=== PATIENT | female | born 1955 | race American Indian/Alaskan Native ===

== ENCOUNTER 2022-05-01 20:09 | Emergency (ER) | payer OTHER ==
[2022-05-01 22:47] LABS: Basophils % (Auto) 0.3 % (0.0-1.8); Eosinophils % (Auto) 0.1 % (0.0-4.3); Hematocrit 38.8 % (30.3-42.9); Hemoglobin 13.4 gm/dl (10.1-14.3); Lymphocytes # (Auto) 1.3 K/mm3 (1.2-5.4); Lymphocytes % (Auto) 8.9 % (13.4-35.0); Mean Corpuscular HGB Conc 34 % (30-34); Mean Corpuscular Volume 89 fl (79-97); Monocytes # (Auto) 1.7 K/mm3 (0.0-0.8); Monocytes % (Auto) 11.6 % (0.0-7.3); Platelet Count 214 K/mm3 (140-440); Red Blood Count 4.37 M/mm3 (3.65-5.03); Red Cell Distribution Width 13.2 % (13.2-15.2)
[2022-05-01 22:48] LABS: Bacteria,Urine 2+ /HPF (Negative); Mucus,Urine 3+ /HPF
[2022-05-01 22:49] LABS: Color,Urine Yellow (Yellow)
[2022-05-01 22:50] LABS: Bilirubin,Urine Negative (Negative)
[2022-05-01 22:51] LABS: Blood,Urine Trace (Negative); Urobilinogen,Urine < 2.0 mg/dL (<2.0)
[2022-05-01 23:02] LABS: Alanine Aminotransferase 17 units/L (7-56); Albumin 3.9 g/dL (3.9-5); BUN/Creatinine Ratio 21; Blood Urea Nitrogen 19 mg/dL (7-17); Calcium 9.5 mg/dL (8.4-10.2); Hemolysis Index 1
[2022-05-01] MEDS ORDERED: SODIUM CHLORIDE 0.9% 1000 ML 1,000 ML IV ONE (23:55)
[2022-05-01] MEDS ORDERED: ONDANSETRON 4 MG/2 ML INJ IV ONE (23:55)
[2022-05-01] MEDS ORDERED: MORPHINE 4 MG/1 ML INJ IV ONE (23:55)
--- NOTE | 2022-05-02 01:00 | Cat Scan Report ---
CT ABDOMEN AND PELVIS WITH CONTRAST INDICATION / CLINICAL INFORMATION: LOWER ABDOMINAL PAIN. TECHNIQUE: Axial CT images were obtained through the abdomen and pelvis after 100 cc Omnipaque [address] scans at this location are performed using CT dose reduction for ALARA by means of automated exposure control. COMPARISON: None available. FINDINGS: LOWER CHEST: No significant abnormality of the imaged chest. LIVER: No focal lesion. No acute findings. GALLBLADDER / BILE DUCTS: No significant abnormality. Biliary ducts grossly unremarkable. SPLEEN: No significant abnormality. PANCREAS: No focal lesion of the pancreas. ADRENALS: No significant abnormality. KIDNEYS/URETERS: No stones or hydronephrosis. No solid renal lesion. STOMACH / DUODENUM / SMALL BOWEL: The stomach, duodenum, and small bowel demonstrate no significant a bnormality. No specific abnormality of the mesentery demonstrated. COLON: Multiple diverticula are demonstrated within the lower descending and sigmoid colon. Fat stran ding along the superior margin of the sigmoid colon is present with additional inflammatory stranding tracking along mesenteric vein/veins within the mesocolon of the left abdomen. These veins are not w ell-opacified. Additional wall thickening noted in the region of inflammatory change. APPENDIX: No significant abnormality. PERITONEUM: No free air or free fluid are present within the abdomen or pelvis. LYMPH NODES: Borderline to minimally enlarged lymph nodes within the sigmoid mesocolon are present. AORTA / ARTERIES: No significant abnormality. IVC / VEINS: No significant abnormality. URINARY BLADDER: No significant abnormality. REPRODUCTIVE ORGANS: No significant abnormality. SKELETAL SYSTEM: No significant abnormality. ADDITIONAL ABDOMINAL/PELVIC FINDINGS: None. IMPRESSION: 1. Findings compatible with acute diverticulitis. Additional inflammatory stranding along the venous drainage within the mesocolon/mesentery is present with possible thrombophlebitis of the adjacent holly ous structures. No evidence of perforation or abscess formation. Signer Name: Rg Juarez II, MD Signed: 05/02/2022 12:56 AM Workstation Name: [id number]
[2022-05-02] MEDS ORDERED: levoFLOXacin 500 MG TAB PO ONE (01:43)
[2022-05-02] MEDS ORDERED: metroNIDAZOLE 500 MG TAB PO ONE (01:43)
[2022-05-02] MEDS ORDERED: ONDANSETRON 4 MG/2 ML INJ IV ONE (01:58)
[2022-05-02] MEDS ORDERED: KETOROLAC 30 MG/1 ML INJ IV ONE (01:58)
[2022-05-02] MEDS ORDERED: HYDROmorphone 1 MG/1 ML INJ IV ONE (01:58)
--- NOTE | 2022-05-02 02:25 | Emergency Department Report ---
ED Abdominal Pain HPI - General Chief Complaint: Abdominal Pain Stated Complaint: PAIN LOWER BACK AND STOMACH Source: patient Mode of arrival: Ambulatory Limitations: No Limitations - History of Present Illness Initial Comments: Patient is a 67-year-old -[place] female with a history of hypertension and ikk-aqxoucf-gdkzesypk diabetes who presents to the ED with complaint of acute onset persistent diffuse lower abdominal pain with nausea for the last 1 week. Patient states that the symptoms have worsened especially in the last 3 days such that she has not been able to sleep because of worsening diffuse lower abdominal pain. Patient denies diarrhea, hematochezia, vomiting, chest pain, shortness of breath, fever, chills, cough, sore throat, dysuria, urinary frequ ency and urgency, vaginal bleeding, vaginal discharge, low back pain, lightheadedness or sore throat. MD Complaint: abdominal pain (Diffuse lower abdominal pain), other (nausea and vomiting) -: Gradual, week(s) (1) Location: LLQ, RLQ, suprapubic Radiation: LLQ, RLQ, suprapubic Migration to: no migration Severity: severe Severity scale (0 -10): 9 Quality: aching, sharp Consistency: constant Improves With: nothing Worsens With: movement Context: other (unknown) Associated Symptoms: denies other symptoms, nausea, anorexia. denies: vomiting, diarrhea, fever, chills, constipation, dysuria, hematemesis, hematochezia, melena, hematuria, syncope, other - Related Data Previous Rx's Medication Instructions Recorded Last Taken Type Ciprofloxacin HCl 500 mg PO Q12H #20 tab 05/02/22 Unknown Rx Dicyclomine [Bentyl] 20 mg PO Q6H PRN #30 tablet 05/02/22 Unknown Rx Ondansetron [Zofran Odt] 4 mg PO Q6HR PRN #20 tab.rapdis 05/02/22 Unknown Rx metroNIDAZOLE [Flagyl] 500 mg PO Q8HR #30 tablet 05/02/22 Unknown Rx traMADoL [Ultram] 50 mg PO Q6HR PRN #12 tablet 05/02/22 Unknown Rx Allergies Allergy/AdvReac Type Severity Reaction Status Date / Time No Known Allergies Allergy Unverified 05/01/22 21:48 ED Review of Systems ROS: Stated complaint: PAIN LOWER BACK AND STOMACH Other details as noted in HPI Constitutional: denies: chills, fever Eyes: denies: eye pain, eye discharge, vision change ENT: denies: ear pain, throat pain Respiratory: denies: cough, shortness of breath, wheezing Cardiovascular: denies: chest pain, palpitations Endocrine: no symptoms reported Gastrointestinal: abdominal pain (diffuse lower abdomen), nausea. denies: diarrhea Genitourinary: denies: urgency, dysuria, discharge Musculoskeletal: denies: back pain, joint swelling, arthralgia Skin: denies: rash, lesions Neurological: denies: headache, weakness, paresthesias Psychiatric: denies: anxiety, depression Hematological/Lymphatic: denies: easy bleeding, easy bruising ED Past Medical Hx - Past Medical History Previous Medical History?: Yes Hx Hypertension: Yes Hx Diabetes: Yes (type 2) - Surgical History Past Surgical History?: Yes Additional Surgical History: - Medications Home Medications: Home Medications Medication Instructions Recorded Confirmed Last Taken Type Ciprofloxacin HCl 500 mg PO Q12H #20 tab 05/02/22 Unknown Rx Dicyclomine [Bentyl] 20 mg PO Q6H PRN #30 tablet 05/02/22 Unknown Rx Ondansetron [Zofran Odt] 4 mg PO Q6HR PRN #20 tab.rapdis 05/02/22 Unknown Rx metroNIDAZOLE [Flagyl] 500 mg PO Q8HR #30 tablet 05/02/22 Unknown Rx traMADoL [Ultram] 50 mg PO Q6HR PRN #12 tablet 05/02/22 Unknown Rx ED Physical Exam - General Limitations: No Limitations General appearance: alert, in no apparent distress - Head Head exam: Present: atraumatic, normocephalic, normal inspection - Eye Eye exam: Present: normal appearance, PERRL, EOMI Pupils: Present: normal accommodation - ENT ENT exam: Present: normal exam, normal orophraynx, mucous membranes moist, TM's normal bilaterally, normal external ear exam - Neck Neck exam: Present: normal inspection, full ROM. Absent: tenderness - Respiratory Respiratory exam: Present: normal lung sounds bilaterally. Absent: respiratory distress, wheezes, rales, rhonchi, stridor, chest wall tenderness, accessory muscle use, decreased breath sounds, prolonged expiratory - Cardiovascular Cardiovascular Exam: Present: regular rate, normal rhythm, normal heart sounds. Absent: systolic murmur, diastolic murmur, rubs, gallop - GI/Abdominal GI/Abdominal exam: Present: soft, tenderness (Diffuse lower abdominal tenderness), normal bowel sounds. Absent: guarding, rebound, hyperactive bowel sounds, hypoactive bowel sounds, organomegaly, mass, pulsatile mass - Extremities Exam Extremities exam: Present: normal inspection, full ROM, normal capillary refill. Absent: tenderness, pedal edema, joint swelling, calf tenderness - Back Exam Back exam: Present: normal inspection, full ROM. Absent: tenderness, CVA tenderness (R), CVA tenderness (L), muscle spasm, paraspinal tenderness, vertebral tenderness - Neurological Exam Neurological exam: Present: alert, oriented X3, CN II-XII intact, normal gait, reflexes normal - Psychiatric Psychiatric exam: Present: normal affect, normal mood - Skin Skin exam: Present: warm, dry, intact, normal color. Absent: rash ED Course Vital Signs 05/01/22 21:48 Temperature 98.3 F Pulse Rate 98 H Respiratory 16 Rate Blood Pressure 113/68 [Right] O2 Sat by Pulse 98 Oximetry ED Medical Decision Making - Lab Data Result diagrams: 05/01/22 22:14 05/01/22 22:14 - Radiology Data Radiology results: report reviewed, image reviewed [facility] [address] [place] [address] Cat Scan Report Signed Patient: EULALIA ALMEIDA MR#: [id number] : 1955 Acct:[id number] Age/Sex: 67 / F ADM Date: 05/01/22 Loc: ED Attending Dr: Ordering Physician: MICHELLE RUSS Date of Service: 05/01/22 Procedure(s): CT abdomen pelvis w con Accession Number(s): [id number] cc: MICHELLE RUSS CT ABDOMEN AND PELVIS WITH CONTRAST INDICATION / CLINICAL INFORMATION: LOWER ABDOMINAL PAIN. TECHNIQUE: Axial CT images were obtained through the abdomen and pelvis after 100 cc Omnipaque [address] scans at this location are performed using CT dose reduction for ALARA by means of automated exposure control. COMPARISON: None available. FINDINGS: LOWER CHEST: No significant abnormality of the imaged chest. LIVER: No focal lesion. No acute findings. GALLBLADDER / BILE DUCTS: No significant abnormality. Biliary ducts grossly unremarkable. SPLEEN: No significant abnormality. PANCREAS: No focal lesion of the pancreas. ADRENALS: No significant abnormality. KIDNEYS/URETERS: No stones or hydronephrosis. No solid renal lesion. STOMACH / DUODENUM / SMALL BOWEL: The stomach, duodenum, and small bowel demon strate no significant abnormality. No specific abnormality of the mesentery demonstrated. COLON: Multiple diverticula are demonstrated within the lower descending and sigmoid colon. Fat stranding along the superior margin of the sigmoid colon is present with additional inflammatory stranding tracking along mesenteric vein/veins within the mesocolon of the left abdomen. These veins are not well-opacified. Additional wall thickening noted in the region of inflammatory change. APPENDIX: No significant abnormality. PERITONEUM: No free air or free fluid are present within the abdomen or pelvis. LYMPH NODES: Borderline to minimally enlarged lymph nodes within the sigmoid mesocolon are present. AORTA / ARTERIES: No significant abnormality. IVC / VEINS: No significant abnormality. URINARY BLADDER: No significant abnormality. REPRODUCTIVE ORGANS: No significant abnormality. SKELETAL SYSTEM: No significant abnormality. ADDITIONAL ABDOMINAL/PELVIC FINDINGS: None. IMPRESSION: 1. Findings compatible with acute diverticulitis. Additional inflammatory stranding along the venous drainage within the mesocolon/mesentery is present with possible thr ombophlebitis of the adjacent venous structures. No evidence of perforation or abscess formation. Signer Name: Diane Juarez II, MD Signed: 05/02/2022 12:56 AM Workstation Name: [id number] Transcribed By: SARAH Dictated By: DIANE JUAREZ II, MD Electronically Authenticated By: DIANE JUAREZ II, MD Signed Date/Time: 05/02/2255 DD/ TD/TT: Print Cancel - Medical Decision Making This is a 67-year-old -[place] female with a history of hypertension and tap-dtmubha-aveliaziy diabetes who presents to the ED with complaint of acute onset persistent diffuse lower abdominal pain with nausea for the last 1 week. Patient states that the symptoms have worsened especially in the last 3 days such that she has not been able to sleep because of worsening diffuse lower abdominal pain. In the ED, patient is alert and oriented x3 and is not in any distress. Patient was treated for pain in the ED and also given antiemetics and antacids as well as normal saline 1 L IV bolus x1. Lab test results were reviewed and showed acute leukocytosis of 14,500, BUN of 19 and hyperglycemia of 357 mg/dL. The abdomen pelvis CT scan with IV contrast showed findings compatible with acute diverticulitis. Additional inflammatory stranding along the venous drainage within the mesocolon/mesentery is present with possible thr ombophlebitis of the adjacent venous structures. No evidence of perforation or abscess formation. Patient was treated in the ED with Flagyl 500 mg p.o. x1 and Levaquin 500 mg p.o. x1. On reevaluation, patient's pain is well controlled medication. Patient will discharge home on pain medications and oral antibiotics as well as antiemetics. Patient was advised to follow-up with her primary care physician in 5 to 7 days for reevaluation or return to the ED immediately if symptoms get worse. - Differential Diagnosis Appendicitis; colitis, colon diverticulitis; kidney stone; UTI; neoplasm Critical care attestation.: If time is entered above; I have spent that time in minutes in the direct care of this critically ill patient, excluding procedure time. ED Disposition Clinical Impression: Abdominal pain in female, Nausea and vomiting in adult patient, Acute diverticulitis of intestine Disposition: 01 HOME / SELF CARE / HOMELESS Is pt being admited?: No Does the pt Need Aspirin: No Condition: Stable Instructions: Abdominal Pain (ED), Abdominal Pain, Adult, [id number], Diverticulitis, [id number], Nausea and Vomiting, Adult, [id number] Additional Instructions: All lab test results were reviewed and are all nonactionable except for acute leukocytosis of 14,500. The abdomen pelvis CT scan scan with contrast showed findings compatible with acute diverticulitis. Additional inflammatory stranding along the venous drainage within the mesocolon/mesentery is present with possible thrombophlebitis of the adjacent venous structures. No evidence of perforation or abscess formation. Therefore take medication with food, drink plenty of fluids and follow-up with your primary care physician in 7 to 10 days for reevaluation. Return to the ED immediately if symptoms get worse. Prescriptions: Dicyclomine [Bentyl] 20 mg PO Q6H PRN #30 tablet PRN Reason: abdominal pain Ciprofloxacin HCl 500 mg PO Q12H #20 tab metroNIDAZOLE [Flagyl] 500 mg PO Q8HR #30 tablet traMADoL [Ultram] 50 mg PO Q6HR PRN #12 tablet PRN Reason: Pain Ondansetron [Zofran Odt] 4 mg PO Q6HR PRN #20 tab.rapdis PRN Reason: Nausea Referrals: [facility] [Provider Group] - 7-10 days Forms: Work/School Release Form(ED) Time of Disposition: 02:27 Print Language: KOSOVAN
[2022-05-02 05:05] VITALS: BP 121/69
== END 2022-05-02 05:06 | disposition home or self-care (01) ==
LOC: ED 20:09
DX: K57.92 Diverticulitis of intestine, part unspecified, without perforation or abscess without bleeding (principal); R10.30 Lower abdominal pain, unspecified; R11.2 Nausea with vomiting, unspecified; I10 Essential (primary) hypertension; E11.9 Type 2 diabetes mellitus without complications; Z79.899 Other long term (current) drug therapy
CPT/HCPCS: 36415; 74177; 80053; 81001; 85025; 96361; 96374; 96375; 99284; J1170; J1885; J2270; J2405; J7030; Q9967; 96376